=== PATIENT | female | born 1945 | race Caucasian/White ===

== ENCOUNTER 2017-08-11 11:59 | Emergency (ER) | payer MEDICARE ==
--- NOTE | 2017-08-11 12:43 | Emergency Department Record ---
History of Present Illness - General Chief Complaint: Cough Stated Complaint: COUGH Time Seen by Provider: 08/11/17 12:31 Source: Patient Mode of Arrival: Ambulatory Limitations: No limitations - History of Present Illness Initial Comments: The patient is here due to a cough with green sputum for the last 4 days. She denies any CP, SOB, fever, or back pain. She states she does have a hx of COPD but is not having a problem with that right now. MD Complaint: Cough Onset/Timin -: Days(s) Consistency: Intermittent - Related Data Home Medications Medication Instructions Recorded Confirmed Last Taken Cholecalciferol (Vitamin D3) 5,000 unit PO DAILY 08/11/17 08/11/17 Unknown [Vitamin D3] Cyanocobalamin (Vitamin B-12) 1,000 mcg PO DAILY 08/11/17 08/11/17 Unknown [Vitamin B-12] Ezetimibe [Zetia] 10 mg PO DAILY 08/11/17 08/11/17 Unknown Fluticasone/Salmeterol [Advair 1 each IH DAILY 08/11/17 08/11/17 Unknown 250-50 Diskus] Hydrochlorothiazide [Hctz] 25 mg PO DAILY 08/11/17 08/11/17 Unknown Meloxicam 15 mg PO DAILY 08/11/17 08/11/17 Unknown Metformin HCl 500 mg PO BID 08/11/17 08/11/17 Unknown Pantoprazole Sodium 40 mg PO DAILY 08/11/17 08/11/17 Unknown Simvastatin 40 mg PO DAILY 08/11/17 08/11/17 Unknown Sitagliptin Phosphate [Januvia] 25 mg PO DAILY 08/11/17 08/11/17 Unknown Previous Rx's Medication Instructions Recorded Doxycycline Monohydrate [Mondoxyne 100 mg PO BID #14 capsule 08/11/17 ] Allergies Allergy/AdvReac Type Severity Reaction Status Date / Time clindamycin Allergy RASH Verified 08/11/17 12:30 prednisone Allergy RASH Verified 08/11/17 12:30 Travel Screening - Travel/Exposure Within Last 30 Days Have you traveled within the last 30 days?: No Review of Systems Constitutional: Denies: Chills, Fever Eyes: Denies: Eye discharge ENT: Reports: Congestion Respiratory: Reports: Cough. Denies: Dyspnea Past Medical History - SOCIAL HISTORY Smoking Status: Never smoker Alcohol Use: None Drug Use: None - RESPIRATORY Hx Respiratory Disorders: Yes Hx COPD: Yes - CARDIOVASCULAR Hx Cardio Disorders: Yes Hx Hypertension: Yes Hx Irregular Heartbeat: Yes Comment:: high cholesterol - NEURO Hx Neuro Disorders: No - GI Hx GI Disorders: Yes Hx Reflux: Yes - Hx Genitourinary Disorders: No - ENDOCRINE Hx Endocrine Disorders: Yes Hx Diabetes: Yes - MUSCULOSKELETAL Hx Musculoskeletal Disorders: Yes Hx Arthritis: Yes - PSYCH Hx Psych Problems: No - HEMATOLOGY/ONCOLOGY Hx Hematology/Oncology Disorders: No Family Medical History Any Significant Family History?: No Physical Exam - General General Appearance: Alert, Oriented x3, Cooperative, No acute distress - Head Head exam: Atraumatic, Normocephalic, Normal inspection - Eye Eye exam: Normal appearance, PERRL, EOMI - ENT Throat exam: Normal inspection. negative: Tonsillar erythema, Tonsillar exudate - Neck Neck exam: Normal inspection, Full ROM. negative: Tenderness - Respiratory Respiratory exam: Normal lung sounds bilaterally. negative: Rales, Respiratory distress - Cardiovascular Cardiovascular Exam: Regular rate, Normal rhythm, Normal heart sounds - GI/Abdominal GI/Abdominal exam: Soft, Normal bowel sounds. negative: Tenderness - Extremities Extremities exam: Normal inspection, Full ROM, Normal capillary refill. negative: Tenderness Course Vital Signs 08/11/17 12:26 Temperature 99.1 F Pulse Rate 95 H Respiratory 18 Rate Blood Pressure 149/73 Pulse Ox 95 - Reevaluation(s) Reevaluation #1: I did explain to the patient we will treat her for a bacterial URI. She is to see her PCP if not better in 3 days. 08/11/17 12:41 Disposition Disposition: Discharge Clinical Impression: Bronchitis Disposition: Home, Self-Care Condition: (2) Stable Instructions: Acute Bronchitis (ED) Additional Instructions: Please continue your regular medicines and take the Doxycycline as directed. Please see your family doctor in 3 days if not better and return to the ER for any worsening symptoms. Prescriptions: Doxycycline Monohydrate [Mondoxyne Nl] 100 mg PO BID #14 capsule Time of Disposition: 12:42 Quality - Quality Measures Quality Measures: N/A - Blood Pressure Screening View Details: Yes Does Patient Have Any of the Following: No Blood Pressure Classification: Hypertensive Reading Systolic Measurement: 149 Diastolic Measurement: 73 Screening for High Blood Pressure: < First Hypertensive BP, F/U Documented > [ [id number]] First Hypertensive Follow-up Interventions: Referral to alternative/primary care provider.
== END 2017-08-11 12:52 | disposition home or self-care (01) ==
LOC: ER 11:59
DX: J20.9 Acute bronchitis, unspecified (principal); E78.00 Pure hypercholesterolemia, unspecified; E11.9 Type 2 diabetes mellitus without complications; J44.9 Chronic obstructive pulmonary disease, unspecified; Z79.84 Long term (current) use of oral hypoglycemic drugs
CPT/HCPCS: 99282